=== PATIENT | male | born 1990 ===

== ENCOUNTER 2017-08-03 02:53 | Emergency (ER) | payer SELFPAY ==
[2017-08-03] MEDS ORDERED: ZOFRAN ODT PO ONE (08:07)
[2017-08-03] MEDS ORDERED: BOOSTRIX IM ONE (08:07)
[2017-08-03] MEDS ORDERED: NORCO 5/325 PO ONE (08:08)
[2017-08-03] MEDS ORDERED: XYLOCAINE 2% INFILTRATI ONE (08:09)
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
[2017-08-03] MEDS ORDERED: CLEOCIN PO ONE (09:24)
[2017-08-03] MEDS ORDERED: MOTRIN PO ONE (09:24)
[2017-08-03 09:52] VITALS: BP 154/103
== END 2017-08-03 09:53 | disposition home or self-care (01) ==
LOC: ED 02:53
DX: L02.01 Cutaneous abscess of face (principal); G43.909 Migraine, unspecified, not intractable, without status migrainosus
CPT/HCPCS: 87076; 87116; 87186; 90471; 90715; 99282; Q0162